=== PATIENT | male | born 1960 | race Caucasian/White ===

== ENCOUNTER 2017-10-29 10:59 | Day surgery (SDC) | payer OTHER ==
[2017-10-29 11:52] VITALS: BMI 25.4
[2017-10-29 12:58] VITALS: TEMP 97.6
[2017-10-29 13:29] VITALS: BP 119/80; PULSE 50
--- NOTE | 2017-11-01 16:37 | PATH ---
Surgical Pathology Report Patient Name: SHARMAINE PITT [facility]. Rec. #: [id number] /Age/Gender: 1960 (Age: 57) / M Account: [id number] Location: U-ENDOSCOPY Taken: 10/29/2017 Received: 10/29/2017 Reported: 11/01/2017 Physicians: Enrico King D.O. Specimen(s) Received A: BX CECAL POLYP B: BX PROXIMAL TRANSVERSE COLON POLYP C: BX ANAL PAPILLA Clinical History Colon screening, hemorrhage of rectum Postoperative diagnosis: Polyps, anal papilla Final Diagnosis A. CECUM, POLYP, POLYPECTOMY: POLYPOID COLONIC MUCOSA WITH SMALL LYMPHOID AGGREGATE. B. PROXIMAL TRANSVERSE COLON, POLYP, POLYPECTOMY: TUBULAR ADENOMA. C. ANAL PAPILLA, BIOPSY: POLYPOID SQUAMOUS MUCOSA CONSISTENT WITH HYPERTROPHIED PAPILLA. SEE COMMENT. Comment: HPV in situ hybridization (low risk, subtypes 6/11) performed and interpreted at [place], [place] ([id number]) is negative. Electronically Signed Vy Enriquez M.D. Gross Description A. Received in formalin, labeled "biopsy cecal polyp" are 2 bradley, irregular portions of soft tissue averaging 0.3 cm. in greatest dimension. The specimens are submitted in toto in one cassette. B. Received in formalin, labeled "biopsy proximal transverse colon polyp" is a bradley, irregular portion of soft tissue measuring 0.4 cm. in greatest dimension. The specimen is submitted in toto in one cassette. C. Received in formalin labeled "biopsy anal papilla," is a 0.7 x 0.5 x 0.1 cm aggregate of bradley soft tissue fragments. The formalin is filtered and the specimen is entirely submitted in one cassette. DL/10/29/2017 saudi/10/29/2017
== END 2017-10-29 13:20 | disposition home or self-care (01) ==
LOC: JASU-ENDO 10:59
PROVIDERS: ATTEND Internal Medicine Gastroenterology
PROC: 0DBL8ZX Excision of Transverse Colon, Via Natural or Artificial Opening Endoscopic, Diagnostic (ICD-10-PCS; 2017-10-29)
PROC: 0DBH8ZX Excision of Cecum, Via Natural or Artificial Opening Endoscopic, Diagnostic (ICD-10-PCS; principal; 2017-10-29 12:00)
DX: Z12.11 Encounter for screening for malignant neoplasm of colon (principal); D12.0 Benign neoplasm of cecum; D12.3 Benign neoplasm of transverse colon; K64.4 Residual hemorrhoidal skin tags
CPT/HCPCS: 88305-TC

== ENCOUNTER 2021-07-29 05:55 | Day surgery (SDC) | payer OTHER ==
[2021-07-25 17:50] VITALS: BMI 24.9
[2021-07-29] MEDS ORDERED: SUCCINYLCHOLINE CHLORIDE 200 MG/10 ML SYRINGE ONE (06:48)
[2021-07-29] MEDS ORDERED: MIDAZOLAM HCL 2 MG/2 ML SINGLE DOSE VIAL ONE ×2 (06:48)
[2021-07-29] MEDS ORDERED: DEXAMETHASONE SOD PHOSPHATE 4 MG/1 ML VIAL ONE ×2 (06:48→09:15)
[2021-07-29] MEDS ORDERED: ONDANSETRON 4 MG/2 ML VIAL ONE ×2 (06:48→09:15)
[2021-07-29] MEDS ORDERED: PROPOFOL 20 ML ONE ×3 (06:48→07:40)
[2021-07-29] MEDS ORDERED: ceFAZolin SODIUM 1 GM VIAL ONE (06:49)
[2021-07-29] MEDS ORDERED: BUPIVACAINE 0.25% /EPI 1:200,000 10 ML VIAL NR ONE (07:59)
[2021-07-29] MEDS ORDERED: ACETAMINOPHEN 500 MG TABLET (FP) PO PRN ×2 (08:50→09:51)
[2021-07-29] MEDS ORDERED: oxyCODONE HCL 5 MG TABLET PO PRN ×4 (08:50→09:51)
[2021-07-29] MEDS ORDERED: ONDANSETRON 4 MG/2 ML VIAL IVPUSH PRN ×2 (08:50→09:51)
[2021-07-29] MEDS ORDERED: LACTATED RINGERS SOLUTION 1,000 ML IV SCH ×2 (09:00→09:51)
[2021-07-29 09:59] VITALS: TEMP 97.1
[2021-07-29 10:51] VITALS: BP 121/77; PULSE 57
== END 2021-07-29 10:40 | disposition home or self-care (01) ==
LOC: FASU 05:55
PROVIDERS: ATTEND Orthopaedic Surgery
PROC: 0LS30ZZ Reposition Right Upper Arm Tendon, Open Approach (ICD-10-PCS; 2021-07-29)
PROC: 0LQ14ZZ Repair Right Shoulder Tendon, Percutaneous Endoscopic Approach (ICD-10-PCS; principal; 2021-07-29 07:59)
PROC: 0RNJ4ZZ Release Right Shoulder Joint, Percutaneous Endoscopic Approach (ICD-10-PCS; 2021-07-29 07:59)
PROC: 0RBJ4ZZ Excision of Right Shoulder Joint, Percutaneous Endoscopic Approach (ICD-10-PCS; 2021-07-29 07:59)
DX: M75.111 Incomplete rotator cuff tear or rupture of right shoulder, not specified as traumatic (principal); M67.813 Other specified disorders of tendon, right shoulder; S43.431A Superior glenoid labrum lesion of right shoulder, initial encounter; X58.XXXA Exposure to other specified factors, initial encounter; Y93.9 Activity, unspecified; Y92.9 Unspecified place or not applicable; M94.211 Chondromalacia, right shoulder; M65.811 Other synovitis and tenosynovitis, right shoulder; M75.01 Adhesive capsulitis of right shoulder
CPT/HCPCS: 73030-TC-RT-FY; 82962; 88304-TC; 94760